=== PATIENT | female | born 1985 | race Caucasian/White ===

== ENCOUNTER 2016-08-14 10:06 | Emergency (ER) | payer MEDICAID ==
[~2016-08-14] VITALS: Ht 160 cm; Wt 56.7 kg
[2016-08-14 10:11] VITALS: BP 137/89; PULSE 109; RESP 16; TEMP 98.1; O2SAT 97
[2016-08-14] MEDS ORDERED: IBUPROFEN 800 MG TABLET PO ONE (10:45)
[2016-08-14 11:15] VITALS: BP 134/85; PULSE 85; RESP 16; TEMP 97.4; O2SAT 97
== END 2016-08-14 11:15 ==
LOC: SED 10:06
DX: Z04.1 Encounter for examination and observation following transport accident (principal); R07.89 Other chest pain; R51 Headache
CPT/HCPCS: 71010; 81025; 99283